=== PATIENT | female | born 1970 | race Caucasian/White ===

== ENCOUNTER 2018-03-13 16:10 | Emergency (ER) | payer OTHER ==
[~2018-03-13] VITALS: Ht 160 cm; Wt 54.4 kg
[2018-03-13 16:26] VITALS: BP 102/72
--- NOTE | 2018-03-13 17:23 | NUR ---
JENNIFER WRAP APPLIED, Crutches dispensed. Pt instructed on proper use of crutches. Patient able to demonstrate correct use of crutches.Patient discharged to home in stable condition. Written and verbal after care instructions given. Patient verbalizes understanding of instruction.
== END 2018-03-13 17:25 | disposition home or self-care (01) ==
LOC: ER 16:14
DX: S90.32XA Contusion of left foot, initial encounter (principal); W01.0XXA Fall on same level from slipping, tripping and stumbling without subsequent striking against object, initial encounter; Y93.01 Activity, walking, marching and hiking; Y92.89 Other specified places as the place of occurrence of the external cause; Y99.8 Other external cause status
CPT/HCPCS: 73630; 99283; A4606; Z7610

== ENCOUNTER 2022-11-23 20:41 | Emergency (ER) | payer OTHER ==
[~2022-11-23] VITALS: Ht 160 cm; Wt 61.2 kg
[2022-11-23] MEDS ORDERED: IBUPROFEN 600 MG TABLET PO ONE (21:30)
[2022-11-23] MEDS ORDERED: HYDROCODONE/APAP 5/325MG TABLET PO ONE (21:30)
[2022-11-23] MEDS ORDERED: IBUPROFEN 600 MG TABLET ONE (21:33)
[2022-11-23] MEDS ORDERED: HYDROCODONE/APAP 5/325MG TABLET ONE (21:33)
[2022-11-23] MEDS ORDERED: HYDR-4303 PO (23:15)
[2022-11-23] MEDS ORDERED: IBUP-1955 PO (23:15)
[2022-11-23 23:58] VITALS: BP 137/89; TEMP 98.5; O2SAT 97
[2022-11-24] MEDS ORDERED: HYDR-4303 PO (00:02)
[2022-11-24] MEDS ORDERED: IBUP-1955 PO (00:02)
== END 2022-11-24 | disposition home or self-care (01) ==
LOC: ER 20:42
DX: S82.62XA Displaced fracture of lateral malleolus of left fibula, initial encounter for closed fracture (principal); W01.0XXA Fall on same level from slipping, tripping and stumbling without subsequent striking against object, initial encounter; Y93.89 Activity, other specified; Y92.89 Other specified places as the place of occurrence of the external cause; Y99.8 Other external cause status
CPT/HCPCS: 73590-TC; 73610-TC